=== PATIENT | male | born 1960 | race Caucasian/White ===

== ENCOUNTER 2021-10-05 13:47 | Inpatient (IN) ==
[2021-10-05 14:29] LABS: Basophils # (auto) 0.04 K/uL (0-0.2); Basophils % (auto) 0.4 %; Eosinophils # (auto) 0.12 K/uL (0-0.5); Eosinophils % (auto) 1.1 %; Hematocrit (blood only) 32.1 % (42-52); Immature Granulocytes # (auto) 0.02 K/uL (0.00-0.02); Immature Granulocytes % (auto) 0.2 %; Lymphocytes # (auto) 1.19 K/uL (1.2-3.4); Lymphocytes % (auto) 11.4 %; Mean Corpuscular Hemoglobin 27.9 pg (25-34); Mean Corpuscular Hgb Conc 31.2 g/dL (32-36); Mean Corpuscular Volume 89.7 fL (80-100); Monocytes # (auto) 1.02 K/uL (0.11-0.59); Monocytes % (auto) 9.7 %; Neutrophils # (auto) 8.08 K/uL (1.4-6.5); Neutrophils % (auto) 77.2 %; Platelet Count 613 K/uL (130-400); RDW Coefficient of Variation 15.5 % (11.5-14.5); RDW Standard Deviation 50.4 fL (36.4-46.3); Red Blood Count 3.58 M/uL (4.7-6.1); White Blood Count 10.47 K/uL (4.8-10.8)
[2021-10-05 14:45] LABS: INR 1.1 (0.9-1.1); Partial Thromboplastin Time 28.3 Seconds (21.0-31.0); Prothrombin Time 11.5 Seconds (9.0-12.0)
--- NOTE | 2021-10-05 14:46 | XRay Report ---
TWO VIEW CHEST CLINICAL HISTORY: Respiratory infection. FINDINGS: PA and lateral chest radiographs are compared to chest x-ray and chest CT dated 10/02/2021. The cardiomediastinal silhouette is unremarkable noting atherosclerotic calcification of the thoracic aorta. Emphysema and chronic interstitial thickening is similar to previous. The right lung is clear . A multiloculated gas and fluid containing pleural collection in the left lung has not significantly changed from previous. There is no pneumothorax. The bony thorax appears intact. IMPRESSION: A multiloculated fluid collection in the left mid to lower lung has not significantly ricardo nged from 10/02/2021. When correlated with the recent CT scan the appearance is most typical for empye ma. ACT 112: Negative or not required by law. Electronically signed by: Krunal Brock M.D. 10/05/2021 2:44 PM
[2021-10-05 14:49] LABS: Alanine Aminotransferase 53 U/L (7-52); Albumin Globulin Ratio 0.7 (0.9-2); Alkaline Phosphatase 152 U/L (34-104); Anion Gap 8 (3-11); Aspartate Aminotransferase 29 U/L (13-39); BUN Creatinine Ratio 17.9 (10-20); Bilirubin,Total 0.5 mg/dl (0.2-1.0); Blood Urea Nitrogen 12 mg/dl (6-23); Carbon Dioxide 29 mmol/L (21-32); Chloride 98 mmol/L (98-107); Est GFR (African American) 120.2 ml/min; Est GFR (Non-African American) 103.7 ml/min; Globulin 4.3 gm/dl (2.5-4.0); Glucose 146 mg/dl (70-99(Fasting)); Potassium 4.1 mmol/L (3.5-5.1); Sodium 135 mmol/L (136-145); Total Protein 7.3 gm/dl (6.0-8.3)
--- NOTE | 2021-10-05 16:14 | Electrocardiogram Report ---
Test Reason : Blood Pressure : / mmHG Vent. Rate : 093 BPM Atrial Rate : 093 BPM P-R Int : 138 ms QRS Dur : 086 ms QT Int : 336 ms P-R-T Axes : 048 044 050 degrees QTc Int : 417 ms Normal sinus rhythm Nonspecific ST abnormality When compared with ECG of 02-OCT-2021 10:52, No significant change was found Confirmed by Rc Mcnamara ([id number]) on 10/05/2021 4:14:25 PM Referred By: Confirmed By:Kali Mcnamara
--- NOTE | 2021-10-05 16:18 | Emergency Department Note ---
Impression & Plan Empyema lung, Cough, Anemia, Thrombocytosis ED Provider Note NAME: SANDI COHN AGE: 61 SEX: M : 1960 ARRIVES VIA: Walk-In INFORMANT: Patient, ED PROVIDER(S): Dontrell Jasmine MD Chief Complaint: HPI: Patient presents from home due to concern for reported lower red cell count. The patient also reports that he was seen here recently and was told that he should stay in hospital but went home. Patient states that [facility] who told him to return here. Patient denies any blood thinner use and denies any rectal bleeding or dark tarry stools. The patient states that he did have a cough that is been ongoing for several months but noticed some productive yellow sputum cough over the last 3 weeks. Patient has any fevers or chills. Patient denies shortness of breath or chest pain. Patient states that his appetite has been appropriate. Patient denies any nausea vomiting or diarrhea. Patient states he has a history of prediabetes and takes medication to help with his blood sugars. Per review of the patient's visit on October 02 he had been seen at that time and had a CAT scan which showed concern for large complex thick walled fluid and gas containing collection wit hin the left lower hemithorax measuring 14 x 7 cm and a likely empyema. The patient was advised to stay for IV antibiotics and potential drainage but he just wanted oral antibiotics at home. Patient did receive IV antibiotics and subsequently was discharged on Augmentin and Bactrim twice daily for 14 days. ROS: See HPI for pertinent positives and negatives. A total of 10 systems were reviewed and otherwise negative. Past medical history: See below Surgical history: See below Social history: See below Physical Exam: GENERAL: NAD, wearing glasses, wearing a mask, non-toxic. EYE EXAM: Normal conjunctiva. PERRL, no anisocoria and EOM's grossly intact w/o pain. Oropharynx: Moist mucous membranes, edentulous. NECK: Supple, no nuchal rigidity, no adenopathy, non-tender. No signs of mening ismus. FROM of the neck with good chin to chest and neck extension. No stridor. LUNGS: Decreased breath sounds left base normal chest wall mechanics. HEART: NSR, no MRG. ABDOMEN: Abdomen soft, non-tender, normo-active bowel sounds, no masses, no rebound or guarding. BACK: No CVA TTP. SKIN: No rashes and no bruising. UPPER EXTREMITIES: Upper extremities are grossly normal. LOWER EXTREMITIES: Grossly normal, no edema. NEURO EXAM: A&O x3, cranial nerves II-XII grossly intact, normal speech, moves all 4 extremities on command w/o issue. Good finger to nose, no drift, no sensory deficits. Differential diagnoses: Reactive airway disease, pneumonia, pneumothorax, COPD, CHF, infections, cardiac ischemia, pulmonary embolism, musculoskeletal, gastrointestinal, as well as other pathologies. Course: Patient was seen and evaluated the bedside. Full history physical exam was performed. EKG interpreted by me Imaging Studies: See Below Cardiac monitoring: An order was placed for continuous cardiac monitoring. The monitor shows a rate of 88 with sinus rhythm. MDM: Patient presented due to concern for recent empyema but left AMA back on the . Patient return for reevaluation. The patient did have blood work completed along with a chest x-ray. The patient does have a multiloculated fluid collection left mid to lower lung which is not significantly changed from prior. The patient is not hypoxic or in respiratory distress. Patient was ordered vancomycin and Zosyn to treat his empyema. The patient is white count of 10 with anemia at 10. The patient does have thrombocytosis of 613. Kidney function grossly unremarkable with mild elevation in blood glucose 146. Mild elevation in ALT and alk phos. Urinalysis does not show evidence of obvious infection. Covid negative. I did speak the on-call diabetes educator Dr. Berkowitz recommended repeat CAT scan of the chest to evaluate. This does show large complex thick-walled fluid and gas containing collection in left lower hem ithorax approximate 15 x 7 cm. He does recommend continued antibiotic treatment but is recommending VATS versus percutaneous drain. [facility] stated that [facility] currently do not have beds but they would recommend a pigtail or percutaneous catheter drain along with dornase and TPA treatments. He did state that 60 to 70% of people do not require surgery with this treatment. I did state that we would try and find an alternative placed where the patient could be accepted. This speak [facility] Dr. Bailon who accepted the patient. I did speak with the transfer center stated that they did not have any obvious bed holds. Patient was consented for transfer. I was then told that the patient may be a bed hold the patient cannot be transferred at this time. I spoke with the on-call hospitalist Dr. Avendano and the patient was admitted to the medicine service pending transfer to [facility]. Past Med/Surg History Medical History Dyslipidemia Left against medical advice Surgical History No pertinent past surgical history Social History Smoking Status: Never smoker Feels Safe at Home: Yes Allergies Allergies Allergy/AdvReac Type Severity Reaction Status Date / Time No Known Allergies Allergy Verified 10/05/21 17:55 Home Meds Home Medications Medication Instructions Recorded Confirmed etodolac 500 mg tablet 500 mg PO BID #0 10/18/13 10/05/21 lisinopril 10 1 tab PO QAM #0 10/18/13 10/05/21 mg-hydrochlorothiazide 12.5 mg tablet loratadine 10 mg capsule 10 mg PO QAM #0 10/18/13 10/05/21 pravastatin 40 mg tablet 40 mg PO HS #0 10/18/13 10/05/21 ranitidine HCl 150 mg tablet 150 mg PO DIRECTED #0 tab 11/16/16 10/05/21 tamsulosin 0.4 mg capsule 0.4 mg PO QAM #0 cap 11/16/16 10/05/21 tramadol 100 mg tablet 100 mg PO Q8 PRN #0 tab 11/16/16 10/05/21 methocarbamol 750 mg tablet 750 mg PO QID PRN #0 tab 12/22/17 10/05/21 multivitamin 1 tab PO QAM #0 12/22/17 10/05/21 omega 2-pjg-glk-fish oil 1,200 mg 1 cap PO QAM 10/02/21 10/05/21 (144 mg-216 mg) capsule (Fish Oil) Previous Rx's Medication Instructions Recorded amoxicillin 875 mg-potassium 1 tab PO BID 14 Days #28 tab 10/02/21 clavulanate 125 mg tablet sulfamethoxazole 800 1 tab PO BID 14 Days #28 tab 10/02/21 mg-trimethoprim 160 mg tablet (Bactrim DS) Results & Data (ED) Vital Signs Vital Signs - 24 hr 10/05/21 13:56 10/05/21 16:52 10/05/21 18:20 Temperature 36.6 C Temperature Source Temporal Artery Scan Pulse Rate 98 H Pulse Rate [Right Finger] 88 89 Pulse Rhythm Regular Pulse Rhythm [Right Finger] Regular Pulse Strength [Right Finger] Normal Respiratory Rate 20 16 20 Respiratory Effort / Characteristics Non-Labored Spontaneous Non-Labored Spontaneous Respiratory Depth Normal Normal Respiratory Pattern Regular Regular Blood Pressure 122/70 Blood Pressure [Right Arm] 121/73 118/67 Blood Pressure Mean 87 Blood Pressure Mean [Right Arm] 89 84 Blood Pressure Position [Right Arm] Sitting Pulse Oximetry 93 94 95 Oxygen Delivery Method Room Air Room Air Room Air Sepsis Recent Fever Within 48 Hours No Sepsis New/Unexplained Change in Mental Status No Sepsis Action Taken by Nursing No Action Required 10/05/21 20:00 Temperature Temperature Source Pulse Rate Pulse Rate [Right Finger] 71 Pulse Rhythm Pulse Rhythm [Right Finger] Regular Pulse Strength [Right Finger] Normal Respiratory Rate 17 Respiratory Effort / Characteristics Non-Labored Spontaneous Respiratory Depth Normal Respiratory Pattern Blood Pressure Blood Pressure [Right Arm] Blood Pressure Mean Blood Pressure Mean [Right Arm] Blood Pressure Position [Right Arm] Pulse Oximetry 96 Oxygen Delivery Method Room Air Sepsis Recent Fever Within 48 Hours Sepsis New/Unexplained Change in Mental Status Sepsis Action Taken by Alf Medications Current Medication List: was personally reviewed by me Laboratory Data Attestation: I reviewed the patient's lab results. Result diagrams: 10/05/21 14:07 10/05/21 14:07 Lab Results 10/05/21 10/05/21 10/05/21 Range/Units 14:07 14:07 14:07 WBC 10.47 (4.8-10.8) K/uL RBC 3.58 L (4.7-6.1) M/uL Hgb 10.0 L (14.0-18.0) g/dL Hct 32.1 L (42-52) % MCV 89.7 (80-100) fL MCH 27.9 (25-34) pg MCHC 31.2 L (32-36) g/dL RDW Std Deviation 50.4 H (36.4-46.3) fL RDW Coeff of Barrett 15.5 H (11.5-14.5) % Plt Count 613 H (130-400) K/uL MPV 9.0 (7.4-10.4) fL Immature Gran % (Auto) 0.2 % Neut % (Auto) 77.2 % Lymph % (Auto) 11.4 % Hitchcock % (Auto) 9.7 % Eos % (Auto) 1.1 % Baso % (Auto) 0.4 % Neut # (Auto) 8.08 H (1.4-6.5) K/uL Lymph # (Auto) 1.19 L (1.2-3.4) K/uL Hitchcock # (Auto) 1.02 H (0.11-0.59) K/uL Eos # (Auto) 0.12 (0-0.5) K/uL Baso # (Auto) 0.04 (0-0.2) K/uL Immature Gran # (Auto) 0.02 (0.00-0.02) K/uL PT 11.5 (9.0-12.0) Seconds INR 1.1 (0.9-1.1) APTT 28.3 (21.0-31.0) Seconds PTT Ratio 1.0 Sodium 135 L (136-145) mmol/L Potassium 4.1 (3.5-5.1) mmol/L Chloride 98 (98-107) mmol/L Carbon Dioxide 29 (21-32) mmol/L Anion Gap 8 (3-11) BUN 12 (6-23) mg/dl Creatinine 0.67 (0.6-1.4) mg/dl Est Cr Clr Drug Dosing Not Reportable Est GFR ( Amer) 120.2 ml/min Est GFR (Non-Af Amer) 103.7 ml/min BUN/Creatinine Ratio 17.9 (10-20) Glucose 146 H (70-99(Fasting)) mg/dl Calcium 9.0 (8.5-10.1) mg/dl Total Bilirubin 0.5 (0.2-1.0) mg/dl AST 29 (13-39) U/L ALT 53 H (7-52) U/L Alkaline Phosphatase 152 H (34-104) U/L Total Protein 7.3 (6.0-8.3) gm/dl Albumin 3.0 L (3.4-5.0) gm/dl Globulin 4.3 H (2.5-4.0) gm/dl Albumin/Globulin Ratio 0.7 L (0.9-2) Urine Color Urine Appearance (Clear) Urine pH (4.5-7.5) Ur Specific Cunningham (1.000-1.030) Urine Protein (Negative) Urine Glucose (UA) (Negative) Urine Ketones (Negative) Urine Blood (Negative) Urine Nitrite (Negative) Urine Bilirubin (Negative) Urine Urobilinogen (Negative) Ur Leukocyte Esterase (Negative) SARS-CoV-2, RNA, NAAT (NEGATIVE) 10/05/21 10/05/21 Range/Units 16:54 Unknown WBC (4.8-10.8) K/uL RBC (4.7-6.1) M/uL Hgb (14.0-18.0) g/dL Hct (42-52) % MCV (80-100) fL MCH (25-34) pg MCHC (32-36) g/dL RDW Std Deviation (36.4-46.3) fL RDW Coeff of Barrett (11.5-14.5) % Plt Count (130-400) K/uL MPV (7.4-10.4) fL Immature Gran % (Auto) % Neut % (Auto) % Lymph % (Auto) % Hitchcock % (Auto) % Eos % (Auto) % Baso % (Auto) % Neut # (Auto) (1.4-6.5) K/uL Lymph # (Auto) (1.2-3.4) K/uL Hitchcock # (Auto) (0.11-0.59) K/uL Eos # (Auto) (0-0.5) K/uL Baso # (Auto) (0-0.2) K/uL Immature Gran # (Auto) (0.00-0.02) K/uL PT (9.0-12.0) Seconds INR (0.9-1.1) APTT (21.0-31.0) Seconds PTT Ratio Sodium (136-145) mmol/L Potassium (3.5-5.1) mmol/L Chloride (98-107) mmol/L Carbon Dioxide (21-32) mmol/L Anion Gap (3-11) BUN (6-23) mg/dl Creatinine (0.6-1.4) mg/dl Est Cr Clr Drug Dosing Est GFR ( Amer) ml/min Est GFR (Non-Af Amer) ml/min BUN/Creatinine Ratio (10-20) Glucose (70-99(Fasting)) mg/dl Calcium (8.5-10.1) mg/dl Total Bilirubin (0.2-1.0) mg/dl AST (13-39) U/L ALT (7-52) U/L Alkaline Phosphatase (34-104) U/L Total Protein (6.0-8.3) gm/dl Albumin (3.4-5.0) gm/dl Globulin (2.5-4.0) gm/dl Albumin/Globulin Ratio (0.9-2) Urine Color Yellow Urine Appearance Clear (Clear) Urine pH 6.5 (4.5-7.5) Ur Specific Cunningham 1.029 (1.000-1.030) Urine Protein Negative (Negative) Urine Glucose (UA) Negative (Negative) Urine Ketones Negative (Negative) Urine Blood Negative (Negative) Urine Nitrite Negative (Negative) Urine Bilirubin Negative (Negative) Urine Urobilinogen Negative (Negative) Ur Leukocyte Esterase Negative (Negative) SARS-CoV-2, RNA, NAAT NEGATIVE (NEGATIVE) Administered Medications Discontinued Medications Piperacillin Sod/Tazobactam Sod (Zosyn) 4.5 gm in 120 mls @ 240 mls/hr IV NOW ONE Stop: 10/05/21 16:59 Last Infusion: 10/05/21 17:50 Dose: 0 mls/hr Documented by: [id number] Admin: 10/05/21 16:53 Dose: 240 mls/hr Documented by: [id number] Vancomycin HCl 2,500 mg/ (Sodium Chloride) 550 mls @ 180 mls/hr IV NOW ONE Stop: 10/05/21 19:33 Last Admin: 10/05/21 18:24 Dose: 180 mls/hr Documented by: [id number] Ioversol (Optiray 320 100ml) 95 ml IV ONCE ONE Stop: 10/05/21 17:14 Last Admin: 10/05/21 17:13 Dose: 95 ml Documented by: [id number] Imaging Data Radiologist's Impression: Chest X-Ray 10/05/21 13:59 TWO VIEW CHEST CLINICAL HISTORY: Respiratory infection. FINDINGS: PA and lateral chest radiographs are compared to chest x-ray and chest CT dated 10/02/2021. The cardiomediastinal silhouette is unremarkable noting atherosclerotic calcification of the thoracic aorta. Emphysema and chronic interstitial thickening is similar to previous. The right lung is clear. A multiloculated gas and fluid containing pleural collection in the left lung has not significantly changed from previous. There is no pneumothorax. The bony thorax appears intact. IMPRESSION: A multiloculated fluid collection in the left mid to lower lung has not significantly changed from 10/02/2021. When correlated with the recent CT scan the appearance is most typical for empyema. ACT 112: Negative or not required by law. Electronically signed by: Krunal Brock M.D. 10/05/2021 2:[address] 10/05/21 16:[address] WITH CONTRAST CT DOSE: 714.79 mGycm HISTORY: Left-sided chest pain. Follow-up left empyema versus lung abscess. Leg TECHNIQUE: Multiaxial CT images of the chest were performed following the intravenous administration of contrast. A dose lowering technique was utilized adhering to the principles of ALARA. COMPARISON: Chest CTA 10/02/2020. FINDINGS: There is no pericardial effusion. No pneumothorax is present. No enlarged thoracic lymph nodes are noted. Note is made of a large complex thick- walled gas and fluid containing collection within the left lower hemithorax which measures 15 x 7 cm. This accounts for the finding on chest radiograph performed earlier today. Contents within this collection measure above water attenuation. Adjacent subpleural airspace opacity within the lingula and left lower lobe is noted with volume loss. Secretions within the left lower lobe bronchi are present. There is mild emphysema. Right lung is clear. No pneumothorax. No suspicious lesions are identified within the bony thorax. Visualized portions of the upper abdomen demonstrate probable hepatic steatosis. Bilateral gynecomastia is incidentally noted. IMPRESSION: 1. No significant change compared to the prior study. 2. Large complex thick-walled fluid and gas containing collection within the left lower hemithorax which measures 15 x 7 cm. An empyema is favored. A pulmonary abscess is within the differential although considered less likely. Adjacent subpleural left lower lobe and lingular airspace opacity with volume loss. An underlying neoplastic process is considered much less likely however a follow-up chest CT in 3-6 months to ensure resolution is recommended. ACT 112: Negative or not required by law. Electronically signed by: Dayne Vargas M.D. 10/05/2021 5:42 PM Discharge Plan Visit Data Chief Complaint: Abnormal Labs/Diagnostic Testing Stated Complaint: FLUID BY LUNG, ABNORMAL LABS, LIGHTHEADED ED Provider: Dontrell Jasmine Discharge Problem: Empyema lung, Cough, Anemia, Thrombocytosis Patient Disposition: Admitted As Inpatient Prescriptions Prescriptions: No Action pravastatin 40 mg Tablet 40 mg PO HS Qty: 0 RF: 0 lisinopril-hydrochlorothiazide 10-12.5 mg Tablet 1 tab PO QAM Qty: 0 RF: 0 etodolac 500 mg Tablet 500 mg PO BID Qty: 0 RF: 0 loratadine 10 mg Capsule 10 mg PO QAM Qty: 0 RF: 0 tamsulosin 0.4 mg Capsule 0.4 mg PO QAM Qty: 0 RF: 0 ranitidine HCl 150 mg Tablet 150 mg PO DIRECTED Qty: 0 RF: 0 tramadol 100 mg Tablet 100 mg PO Q8 PRN (Reason: Pain) Qty: 0 RF: 0 multivitamin Tablet 1 tab PO QAM Qty: 0 RF: 0 methocarbamol 750 mg Tablet 750 mg PO QID PRN (Reason: Pain) Qty: 0 RF: 0 omega 4-cdw-lsh-fish oil [Fish Oil] 1,200 (144-216) mg Capsule 1 cap PO QAM RF: 0 sulfamethoxazole-trimethoprim [Bactrim DS] 800-160 mg tablet 1 tab PO BID 14 Days Qty: 28 RF: 0 amoxicillin-pot clavulanate 875-125 mg tablet 1 tab PO BID 14 Days Qty: 28 RF: 0 Referrals Referrals: Leigh Moser PA-C [Primary Care Provider] -
[2021-10-05] MEDS ORDERED: PIPERACILLIN/TAZOBACTAM 4.5 GM/120 ML BAG IV ONE (16:30)
[2021-10-05] MEDS ORDERED: PATIENT'S HEIGHT AND/OR WEIGHT NEEDED SCH (16:30)
[2021-10-05] MEDS ORDERED: VANCOMYCIN HCL 2,500 MG in SODIUM CHLORIDE 0.9% 500 ML IV ONE (16:30)
[2021-10-05] MEDS ORDERED: OPTIRAY 320 100ml IV ONE (17:13)
--- NOTE | 2021-10-05 17:44 | CT Scan Report ---
CHEST CT WITH CONTRAST CT DOSE: 714.79 mGycm HISTORY: Left-sided chest pain. Follow-up left empyema versus lung abscess. Leg TECHNIQUE: Multiaxial CT images of the chest were performed following the intravenous administration of contrast. A dose lowering technique was utilized adhering to the principles of ALARA. COMPARISON: Chest CTA 10/02/2020. FINDINGS: There is no pericardial effusion. No pneumothorax is present. No enlarged thoracic lymph no sadi are noted. Note is made of a large complex thick-walled gas and fluid containing collection withi n the left lower hemithorax which measures 15 x 7 cm. This accounts for the finding on chest radiogra ph performed earlier today. Contents within this collection measure above water attenuation. Adjacent subpleural airspace opacity within the lingula and left lower lobe is noted with volume loss. Secret ions within the left lower lobe bronchi are present. There is mild emphysema. Right lung is clear. No pneumothorax. No suspicious lesions are identified within the bony thorax. Visualized portions of th e upper abdomen demonstrate probable hepatic steatosis. Bilateral gynecomastia is incidentally noted. IMPRESSION: 1. No significant change compared to the prior study. 2. Large complex thick-walled fluid and gas containing collection within the left lower hemithorax wh ich measures 15 x 7 cm. An empyema is favored. A pulmonary abscess is within the differential althoug h considered less likely. Adjacent subpleural left lower lobe and lingular airspace opacity with volu me loss. An underlying neoplastic process is considered much less likely however a follow-up chest CT in 3-6 months to ensure resolution is recommended. ACT 112: Negative or not required by law. Electronically signed by: Dayne Vargas M.D. 10/05/2021 5:42 PM
[2021-10-05 21:41] LABS: Appearance Urine Clear (Clear); Bilirubin Urine Negative (Negative); Blood Urine Negative (Negative); Color Urine Yellow; Glucose Urine UA Negative (Negative); Ketones Urine Negative (Negative); Leukocyte Esterase Urine Negative (Negative); Nitrite Urine Negative (Negative); Protein Urine Negative (Negative); Specific Gravity Urine 1.029 (1.000-1.030); Urobilinogen Urine Negative (Negative); pH Urine 6.5 (4.5-7.5)
--- NOTE | 2021-10-05 23:10 | History and Physical Report ---
DATE OF ADMISSION: 10/05/2021. CHIEF COMPLAINT: Lung abscess versus empyema. HISTORY OF PRESENT ILLNESS: A 61-year-old male with past medical history significant for hypertension, BPH, hyperlipidemia, prediabetes, presents with cough going on for 2 months. The patient was in the ER on 10/02 with a similar complaint. At that time, imaging studies showed possible lung abscess versus empyema and advised for IV antibiotics and staying in the hospital for possible drainage, but the patient adamantly refused and signed out AMA and was given oral antibiotics, Augmentin and Bactrim, but the patient says today, he felt almost passed out, so he came back and again the CT chest showing large complex thick walled fluid and gas containing collection in the left lower hemithorax, which measures 15 x 7 cm, empyema is favored, pulmonary abscess in the differential. ER physician talked to pulmonary and he was given vancomycin and Zosyn and getting transferred to [facility]. Hospitalist, Dr. Bailon, accepted the patient but we are awaiting for a bed, so we were called for admission until a bed is available. The patient is currently resting comfortably, hemodynamically stable. Says his shortness of breath is okay now, saturating fine on room air, ambulation makes him short of breath. Denies any headache, no dizziness, no blurred visions, no earache, no runny nose, no sore throat, no nausea, no vomiting. Appetite is good. No difficulty swallowing. No chest pain, no nausea, no abdominal pain. Normal bowel and bladder movements. He has some slight edema in the legs, some difficulty with urination because of enlarged prostate and takes medication for it. Lives with his family. ALLERGIES: No known drug allergies. PAST MEDICAL HISTORY: As mentioned above. PAST SURGICAL HISTORY: Had a knee arthroscopy. MEDICATIONS: The patient is currently on Augmentin 875 mg 1 tablet p.o. b.i.d., Bactrim DS 1 tablet p.o. b.i.d., etodolac 500 mg p.o. b.i.d., lisinopril/hydrochlorothiazide 1 tablet p.o. daily, loratadine 10 mg p.o. daily, methocarbamol 750 mg p.o. q.i.d. p.r.n., multivitamin 1 tablet p.o. daily, fish oil 1 gram p.o. daily, pravastatin 40 mg p.o. at bedtime, Flomax 0.4 mg p.o. a.m., tramadol 100 mg p.o. q.8 hours p.r.n. FAMILY HISTORY: Significant for mother had diabetes; father had fluid around the heart. SOCIAL HISTORY: . Former smoker, smoked 1 pack a day for 20 years, quit about 7 years ago. Alcohol occasional as per the patient. No drug use. REVIEW OF SYSTEMS: As per HPI. Rest of the review of systems is negative. PHYSICAL EXAMINATION: GENERAL: The patient is obese, not in acute distress. VITAL SIGNS: Temperature 36.6, pulse 71, respirations 17, blood pressure 118/67, oxygen 96% on room air. HEENT: Pupils equal, round and reactive to light. Oral mucosa moist. NECK: No JVD. No neck masses. CARDIOVASCULAR: S1 and S2 heard. Regular rate and rhythm. No murmur, no gallop. RESPIRATORY SYSTEM: Normal AP diameter. No accessory muscle use. No wheezing, no crackles. ABDOMEN: Soft, bowel sounds present, nontender, no distention. CENTRAL NERVOUS SYSTEM: Cranial nerves II through XII are grossly intact, nonfocal. EXTREMITIES: Mild pedal edema, no erythema seen. LABORATORY DATA: WBC 10.4, hemoglobin 10, hematocrit 32.1, platelets 613. PT 11.5, INR 1.1, APTT 28.3. Sodium 135, potassium 4.1, chloride 98, bicarbonate 29, BUN 12, creatinine 0.6, serum glucose 146, calcium 9, total bilirubin 0.5, AST 29, ALT 53, alkaline phosphatase 152. SARS-CoV-2 RNA rapid test negative. IMAGING DATA: CT of the chest with contrast: Large complex thick walled fluid and gas containing collection in the left lower hemithorax, which measures 15 x 7 cm and empyema is favored. A pulmonary abscess is within the differential, though considered less likely. Adjacent subpleural left lower lobe and lingular airspace opacity with volume loss and underlying neoplastic process considered much less likely; however, a followup CT chest in 3-6 months is recommended. Chest x-ray: A multiloculated fluid collection in the left mid to lower lung. EKG: Normal sinus rhythm at a rate of 93, nonspecific ST-T changes seen. ASSESSMENT AND PLAN: This is a 61-year-old male who presents with ongoing cough for the last 2 months and found to have left lower lung empyema versus abscess. 1. Left lower lung empyema versus abscess: Emergency Room talked to pulmonary instrumentation supervisor, plan to transfer to [facility], awaiting a bed. Until then, we will admit to the hospital. Received vancomycin and Zosyn, which will be continued. Gentle fluids. We will keep him n.p.o. from midnight in case of any procedures. Closely monitor in the med-telemetry for now. His hemodynamics are stable. Saturating okay on room air. Nebulizers p.r.n.Needs follow up ct chest. 2. History of hyperlipidemia: Continue statin. 3. Benign prostatic hypertrophy: Continue Flomax. 4. History of hypertension: Continue lisinopril/hydrochlorothiazide. 5. History of prediabetes: We will follow the HbA1c level. Diabetic diet when able. DISPOSITION: Closely monitor in the med tele. Awaiting transfer to [facility]. Level 1, full code. Job ID: [id number] [facility]
[2021-10-05] MEDS ORDERED: POLYETHYLENE (MIRALAX) 17 GM PACK PO PRN (23:42)
[2021-10-05] MEDS ORDERED: SODIUM CHLORIDE 0.9% 1000ML 1,000 ML IV SCH (23:42)
[2021-10-05] MEDS ORDERED: LEVALBUTEROL HCL 1.25 MG/3 ML NEB NEB PRN (23:42)
[2021-10-05] MEDS ORDERED: VANCOMYCIN CONSULT ACTIVE PRN (23:42)
[2021-10-05] MEDS ORDERED: VANCOMYCIN HCL 1,000 MG in SODIUM CHLORIDE 0.9% 250 ML IV SCH (23:42)
[2021-10-05] MEDS ORDERED: METHOCARBAMOL 750 MG TABLET PO PRN (23:42)
[2021-10-05] MEDS ORDERED: NITROGLYCERIN SL 0.4 MG/TAB TAB SL PRN (23:42)
[2021-10-05] MEDS ORDERED: PIPERACILL/TAZOBAC CONSULT ACTIVE PRN (23:42)
[2021-10-06] MEDS: ACETAMINOPHEN 325 MG TAB PO PRN ×3 (00:12→17:53)
[2021-10-06] MEDS ORDERED: PIPERACILLIN/TAZOBACTAM 4.5 GM in DEXTROSE 5% 100 ML IV ONE (00:30)
[2021-10-06] MEDS: VANCOMYCIN HCL 1,250 MG in SODIUM CHLORIDE 0.9% 250 ML IV SCH ×2 (04:00→16:24)
[2021-10-06 05:30] LABS: Basophils # (auto) 0.03 K/uL (0-0.2); Basophils % (auto) 0.3 %; Eosinophils # (auto) 0.21 K/uL (0-0.5); Eosinophils % (auto) 1.9 %; Hemoglobin 8.7 g/dL (14.0-18.0); Immature Granulocytes # (auto) 0.03 K/uL (0.00-0.02); Immature Granulocytes % (auto) 0.3 %; Lymphocytes # (auto) 1.53 K/uL (1.2-3.4); Lymphocytes % (auto) 13.7 %; Mean Corpuscular Hgb Conc 31.1 g/dL (32-36); Monocytes # (auto) 1.24 K/uL (0.11-0.59); Monocytes % (auto) 11.1 %; Neutrophils # (auto) 8.15 K/uL (1.4-6.5); Neutrophils % (auto) 72.7 %; Platelet Count 586 K/uL (130-400); RDW Coefficient of Variation 15.8 % (11.5-14.5); RDW Standard Deviation 51.6 fL (36.4-46.3); Red Blood Count 3.11 M/uL (4.7-6.1); White Blood Count 11.19 K/uL (4.8-10.8)
[2021-10-06] MEDS: PIPERACILLIN/TAZOBACTAM 4.5 GM in DEXTROSE 5% 100 ML IV SCH ×3 (05:37→21:50)
[2021-10-06 05:56] LABS: BUN Creatinine Ratio 14.9 (10-20); Calcium 8.9 mg/dl (8.5-10.1); Est GFR (African American) 120.2 ml/min; Est GFR (Non-African American) 103.7 ml/min; Magnesium 1.6 mg/dl (1.7-2.4); Potassium 4.4 mmol/L (3.5-5.1)
[2021-10-06 07:12] LABS: Estimated Average Glucose 148 mg/dl; Hemoglobin A1C 6.8 % (4.5-5.6)
--- NOTE | 2021-10-06 08:01 | Pulmonary Consultation ---
Date of Consultation October 06, 2021 Assessment & Plan (1) Abnormal chest CT: (2) Multifocal pneumonia: (3) Lung abscess: (4) Empyema lung: CT chest 03/07/2022 personally reviewed: Centrilobular emphysema appreciated bilaterally Left lower lobe multiloculated, thick-walled lesion 15 x 7.3 cm appreciated with air pockets within No significant mediastinal lymphadenopathy --Pneumonia with possible pulmonary abscess Patient does not have any pleuritic chest pain Symptoms have been going on for months Has not been adequately treated with antibiotic as an outpatient To me the possibility of it being pulmonary abscess is a bit on the higher side especially given the patient does not have any pleuritic chest pain which is pathopneumonic for empyema VATS should be considered in patient's case. COVID-19 PCR negative Nasal MRSA negative --COPD Not on any new meds at home We will start the patient on Incruse to be used on a daily basis Plan: Continue with antibiotics Follow sputum Patient has been accepted at [place] by CT surgery. If there is very significant delay in patient's transfer we will give a trial of pigtail catheter placement Although the patient's nasal MRSA is negative, I would like to continue with vancomycin for at least 48 hours. Case discussed with Dr. Santizo Please note the above document was generated using voice recognition software. It may contain grammatical, syntax or spelling errors.Any formal questions or concerns about the content, text or information contained within the body of this dictation should be directly addressed to the provider for clarification. History of Present Illness Attending Physician: Armen Santizo MD History of Present Illness 61-year-old male coming to hospital because of worsening cough Patient was in the ED on the of this month and was advised to be admitted but he wanted to go home on antibiotics He did not find any improvement that is the reason he came back to the hospital Dr. Jasmine give me a call from the ED. I discussed the case with him twice last night. At the time of examination patient was saturating 92-93% on room air He was actively coughing. State that he has been having issues with coughing going up for approximately 6- 8 weeks Has not taken any antibiotics for it. The only antibiotic he was given was on 02 October which he took for 1 day and then came to the hospital Interestingly he denies any pleuritic chest pain or pleurisy. Subjective fevers. No chills. Denies any dysuria or diarrhea. No headache. Denies any hemoptysis. No blurry vision. Denies any personal history of TB. Denies any known exposure to tuberculosis. Social history: 53-lzom-roko smoking history, quit at the age of 56 Allergies Allergy/AdvReac Type Severity Reaction Status Date / Time No Known Allergies Allergy Verified 10/05/21 17:55 Home Medications Medication Instructions Recorded Confirmed Type etodolac 500 mg tablet 500 mg PO BID #0 10/18/13 10/05/21 History lisinopril 10 1 tab PO QAM #0 10/18/13 10/05/21 History mg-hydrochlorothiazide 12.5 mg tablet loratadine 10 mg capsule 10 mg PO QAM #0 10/18/13 10/05/21 History pravastatin 40 mg tablet 40 mg PO HS #0 10/18/13 10/05/21 History ranitidine HCl 150 mg tablet 150 mg PO DIRECTED #0 tab 11/16/16 10/05/21 History tamsulosin 0.4 mg capsule 0.4 mg PO QAM #0 cap 11/16/16 10/05/21 History tramadol 100 mg tablet 100 mg PO Q8 PRN #0 tab 11/16/16 10/05/21 History methocarbamol 750 mg tablet 750 mg PO QID PRN #0 tab 12/22/17 10/05/21 History multivitamin 1 tab PO QAM #0 12/22/17 10/05/21 History amoxicillin 875 mg-potassium 1 tab PO BID 14 Days #28 tab 10/02/21 10/05/21 Rx clavulanate 125 mg tablet omega 1-ecm-amk-fish oil 1,200 mg 1 cap PO QAM 10/02/21 10/05/21 History (144 mg-216 mg) capsule (Fish Oil) sulfamethoxazole 800 1 tab PO BID 14 Days #28 tab 10/02/21 10/05/21 Rx mg-trimethoprim 160 mg tablet (Bactrim DS) Patient History Medical History Dyslipidemia Left against medical advice Surgical History No pertinent past surgical history Social History Smoking Status: Former smoker Second Hand Exposure: No; Do You Dip or Chew Tobacco: No; Tobacco Cessation Education Requested by Patient: No Hx Alcohol Use: Yes Alcohol type: beer Hx Substance Use: No Preferred Language: Serbian Communication Ability: Effective 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 Beliefs That Will Affect Care: None Current Living Situation: Spouse Other Information That Helps Us Care for You: No Feels Safe at Home: Yes Safety Concerns: Feels Safe At This Time Assistive Devices: None Review of Systems Review of Systems: All systems reviewed & are unremarkable except as noted in HPI & below Physical Exam Physical Exam: Constitutional: No acute distress HEENT: EOMI, PERRLA Respiratory system: Decreased air entry bilaterally, no wheeze, no rhonchi, positive crackles appreciated bilaterally more on the left lower side CVS: S1-S2 positive, no murmurs or gallops Abdomen: Soft, nontender, nondistended, positive bowel sounds x4, obese Extremities: +2 pulses bilaterally radialis/ dorsalis pedis, no cyanosis, +1 edema bilateral lower extremity Neuro: Awake alert oriented x3 Psych: Normal mood and affect G/U: No Frausto Skin: no rashes, warm and dry Lymphatic: no cervical or axillary lymphadenopathy Results & Data Results & Data ([facility]) Vital Signs (Past 12 Hours) Vital Signs Temp Pulse Pulse Resp BP Pulse Ox 10/06/21 04:06 36.8 C 80 18 140/82 93 10/06/21 00:00 86 17 133/76 97 10/05/21 23:50 37.1 C 84 17 133/76 97 10/05/21 23:44 84 17 97 10/05/21 22:00 87 17 95 Laboratory Results 10/06/21 05:01 10/06/21 05:01 PG Care Time/CCT Total # of Minutes Spent Total Time Spent with Patient: Total time spent is greater than 50% in coordination of care (as documented) at patient's floor/unit and/or counseling patient: [place] [address] Inpt Consult Level 5 Patient Type New Diagnoses Abnormal chest CT R93.89 Multifocal pneumonia J18.9 Lung abscess J85.2 Empyema lung J86.9
[2021-10-06] MEDS: TAMSULOSIN HCL 0.4 MG CAP PO SCH (08:11)
[2021-10-06] MEDS: MULTIVITAMIN TAB PO SCH (08:13)
[2021-10-06] MEDS: LORATADINE 10 MG TAB PO SCH (08:13)
[2021-10-06] MEDS: LISINOPRIL/HCTZ 10/12.5MG TAB PO SCH (09:27)
--- NOTE | 2021-10-06 10:07 | Pharmacy Report ---
Pharmacy Vanc AUC Short Note - Date of Service October 06, 2021 - Assessment & Plan Assessment 61 year old M receiving vancomycin and zosyn for treatment of empyema vs. pulmonary abscess. MRSA nasal (-), no cultures. Renal function stable. Awaiting transport to [facility] per documentation. Day #2 of antimicrobial therapy. Plan Vancomycin * AUC/MARCIA is the preferred PK/PD target for vancomycin * AUC guided dosing is effective and associated with decreased risk of nephroto xicity compared to traditional trough targets * Trough level of 14.8mcg/mL is predicted to achieve target AUC/MARCIA of 400-600 mg/L.hr and may be associated with a 10% risk of nephrotoxicity * S/p vanc 2500mg IV loading dose. Continue dose of 1250 mg IV every 12 hours * Trough level ordered for 324 AM Zosyn 4.5gm IV q8h extended infusion for CrCL >20 & BMI >35 Pharmacy will continue to follow and will adjust dose/frequency as necessary. Thank you.
[2021-10-06] MEDS ORDERED: MAGNESIUM SULFATE / D5W 1 GM/100 ML BAG IV ONE (11:00)
[2021-10-06] MEDS ORDERED: DEXTROSE 50% 50 ML SYRINGE IV PRN (11:49)
[2021-10-06] MEDS ORDERED: CARBOHYDRATES FOR HYPOGLYCEMIA PO PRN (11:49)
[2021-10-06] MEDS ORDERED: GLUCOSE 40% GEL 15 GM TUBE PO PRN (11:49)
[2021-10-06] MEDS ORDERED: GLUCOSE 10 TABS/TUBE PO PRN (11:49)
[2021-10-06] MEDS ORDERED: GLUCAGON FOR INJ 1 MG VIAL SQ PRN (11:49)
[2021-10-06] MEDS: traMADol HCL 50 MG TABLET PO PRN ×2 (13:18→22:06)
[2021-10-06] MEDS: GABAPENTIN 100 MG CAP PO SCH ×2 (13:25→22:31)
[2021-10-06] MEDS: UMECLIDINIUM BROMIDE 62.5MCG/BLISTER 7 PUFFS/INHALER INH SCH (13:26)
[2021-10-06] MEDS: INSULIN ASPART PER UNIT SC SCH ×2 (17:57→22:08)
--- NOTE | 2021-10-06 19:44 | Hospitalist Progress Note ---
Date of Service October 06, 2021 Assessment & Plan (1) Lung abscess: (2) Multifocal pneumonia: Plan: Patient is a 61 yr male presents with ongoing cough for the last 2 months and found to have left lower lung empyema versus abscess. Pneumonia with pulmonary abscess COPD --CT Chest:No significant change compared to the prior study. Large complex thick-walled fluid and gas containing collection within the left lower hemithorax which measures 15 x 7 cm. An empyema is favored. A pulmonary abscess is within the differential although considered less likely. Adjacent subpleural left lower lobe and lingular airspace opacity with volume loss. An underlying neoplastic process is considered much less likely however a follow-up chest CT in 3-6 months to ensure resolution is recommended. --Continue empiric antibiotic Sputum culture pending Covid screen negative MRSA screen negative Appreciate pulmonology input If patient's transfer gets delayed, pulmonology plans to place pigtail catheter Saturating low 90s on room air Nebs PRN Continue vancomycin, Zosyn for now Plan for transfer to [facility] for CT surgery evaluation--when bed avaialbale Hypomagnesemia Replace electrolytes as needed DM II HbA1C: 6.8 Hold Metformin Continue insulin therapy while hospitalized Monitor BGs Hyperlipidemia: Continue statin. BPH Continue Flomax. Hypertension: Continue lisinopril/hydrochlorothiazide. DVT Px SCDs for now Code Status Full Code Disposition Awaiting transfer to [facility]. Admission and Anticipated Discharge Date Admission Date: October 05, 2021 Subjective And is seen and examined at bedside States having cough with yellowish expectoration Denies any chest pain, dyspnea, dizziness, nausea, abdominal pain Discussed with pulmonology today Waiting for transfer to [facility] Review of Systems Review of Systems: All systems reviewed & are unremarkable except as noted in Subjective Physical Exam Physical Exam: Physical Exam: Vitals signs as noted above General Appearance:Obese, no apparent distress Head: normocephalic, Atraumatic Eyes: normal inspection, EOMI Neck: supple, Trachea midline Respiratory/Chest: Decreased breath sounds, Left basal crackles, No accessory muscle use Cardiovascular: S1, S2, No murmur Abdomen/GI:Soft, Non tender, Bowel sounds present Extremities/Musculoskeletal:normal inspection, Trace pedal edema Neurologic/Psych:AAOX3, grossly no focal neurological deficits Skin: normal color, warm Results & Data Results & Data ([facility]) Vital Signs (Past 12 Hours) Vital Signs Temp Pulse Resp BP Pulse Ox 10/06/21 16:30 81 18 133/67 91 10/06/21 12:48 36.9 C 75 22 133/78 90 Laboratory Results Short CBC 10/06/21 Range/Units 05:01 WBC 11.19 H (4.8-10.8) K/uL Hgb 8.7 L (14.0-18.0) g/dL Hct 28.0 L (42-52) % Plt Count 586 H (130-400) K/uL BMP 10/06/21 05:01 Sodium 134 L Potassium 4.4 Chloride 98 Carbon Dioxide 29 BUN 10 Creatinine 0.67 Glucose 107 H Calcium 8.9 Urine 10/05/21 Range/Units Unknown Urine Color Yellow Urine Appearance Clear (Clear) Urine pH 6.5 (4.5-7.5) Ur Specific [place] 1.029 (1.000-1.030) Urine Protein Negative (Negative) Urine Glucose (UA) Negative (Negative)
[2021-10-06] MEDS ORDERED: PRAVASTATIN SOD 40 MG TAB PO SCH (21:00)
[2021-10-07] MEDS ORDERED: VANCOMYCIN TROUGH ONE (03:30)
[2021-10-07 03:46] LABS: Hematocrit (blood only) 29.1 % (42-52); Hemoglobin 9.1 g/dL (14.0-18.0); Mean Corpuscular Hemoglobin 28.3 pg (25-34); Mean Corpuscular Hgb Conc 31.3 g/dL (32-36); Mean Corpuscular Volume 90.4 fL (80-100); Mean Platelet Volume 8.8 fL (7.4-10.4); Platelet Count 626 K/uL (130-400); RDW Coefficient of Variation 15.8 % (11.5-14.5); RDW Standard Deviation 52.3 fL (36.4-46.3); Red Blood Count 3.22 M/uL (4.7-6.1); White Blood Count 10.22 K/uL (4.8-10.8)
[2021-10-07 04:06] LABS: BUN Creatinine Ratio 14.1 (10-20); Creatinine Clr Calc Pharmacy 160.3 ml/min; Est GFR (African American) 122.5 ml/min; Est GFR (Non-African American) 105.7 ml/min; Magnesium 1.8 mg/dl (1.7-2.4); Potassium 4.4 mmol/L (3.5-5.1)
[2021-10-07] MEDS: ACETAMINOPHEN 325 MG TAB PO PRN (04:23)
[2021-10-07] MEDS: VANCOMYCIN HCL 1,250 MG in SODIUM CHLORIDE 0.9% 250 ML IV SCH (04:49)
[2021-10-07] MEDS: PIPERACILLIN/TAZOBACTAM 4.5 GM in DEXTROSE 5% 100 ML IV SCH ×2 (06:13→13:44)
--- NOTE | 2021-10-07 08:31 | Pharmacy Report ---
Pharmacy Vanc AUC Short Note - Date of Service October 07, 2021 - Assessment & Plan Assessment 61 year old M receiving IV vancomycin for treatment of pneumonia with lung abscess. Pertinent microbiologic data includes: Negative MRSA Nasal Swab. Day # 3 of antimicrobial therapy. Plan Vancomycin * Trough level on 10/07 is 8.1, which results to an AUC less than 400 (~349) mg/L.hr * Dose would be increased to 1250 mg q8h to achieve goal AUC/MARCIA in the 400-600 mg/L.hr range * The dose increase is predicted to achieve target AUC/MARCIA of 522 mg/L.hr and associated trough of 16.1 mg/L * Trough level ordered prior to the 4th dose at about steady state on Zosyn * Zosyn 4.5 g q8h for CrCl > 20mL/min and BMI 35 or above * will continue zosyn at the current dose and regimen due to indication of pneumonia with lung abscess Pharmacy will continue to follow and will adjust dose/frequency as necessary. Thank you.
[2021-10-07] MEDS: GABAPENTIN 100 MG CAP PO SCH ×2 (09:00→13:44)
[2021-10-07] MEDS: LISINOPRIL/HCTZ 10/12.5MG TAB PO SCH (09:01)
[2021-10-07] MEDS: MULTIVITAMIN TAB PO SCH (09:01)
[2021-10-07] MEDS: LORATADINE 10 MG TAB PO SCH (09:01)
[2021-10-07] MEDS: TAMSULOSIN HCL 0.4 MG CAP PO SCH (09:01)
[2021-10-07] MEDS: UMECLIDINIUM BROMIDE 62.5MCG/BLISTER 7 PUFFS/INHALER INH SCH (09:04)
[2021-10-07] MEDS: INSULIN ASPART PER UNIT SC SCH ×2 (09:07→12:26)
[2021-10-07] MEDS ORDERED: VANCOMYCIN HCL 1,250 MG in SODIUM CHLORIDE 0.9% 250 ML IV SCH (12:00)
[2021-10-07] MEDS: traMADol HCL 50 MG TABLET PO PRN (13:58)
[2021-10-07] MEDS ORDERED: LIDOCAINE 2% 2 ML VIAL/AMP(20MG/ML) INFIL ONE (14:05)
--- NOTE | 2021-10-07 14:33 | Hospitalist Progress Note ---
Date of Service October 07, 2021 Assessment & Plan (1) Lung abscess: (2) Multifocal pneumonia: Plan: Patient is a 61 yr male presents with ongoing cough for the last 2 months and found to have left lower lung empyema versus abscess. Pneumonia with pulmonary abscess COPD --CT Chest:No significant change compared to the prior study. Large complex thick-walled fluid and gas containing collection within the left lower hemithorax which measures 15 x 7 cm. An empyema is favored. A pulmonary abscess is within the differential although considered less likely. Adjacent subpleural left lower lobe and lingular airspace opacity with volume loss. An underlying neoplastic process is considered much less likely however a follow-up chest CT in 3-6 months to ensure resolution is recommended. --Continue empiric antibiotic Sputum culture pending Covid screen negative MRSA screen negative Appreciate pulmonology input If patient's transfer gets delayed, pulmonology plans to place pigtail catheter Saturating low 90s on room air Nebs PRN Continue vancomycin, Zosyn for now Plan for transfer to [facility] for CT surgery evaluation today Hypomagnesemia Replace electrolytes as needed DM II HbA1C: 6.8 Hold Metformin Continue insulin therapy while hospitalized Monitor BGs Hyperlipidemia: Continue statin. BPH Continue Flomax. Hypertension: Continue lisinopril/hydrochlorothiazide. DVT Px SCDs for now Code Status Full Code Disposition Transfer to [facility] for CT surgery eval Admission and Anticipated Discharge Date Admission Date: October 05, 2021 Subjective Patient is seen and examined at bedside Doing better today Cough with yellowish expectoration is about same as yesterday No new complaints Denies any chest pain, dyspnea, dizziness, nausea, abdominal pain Plan to be discharged to [facility] today Review of Systems Review of Systems: All systems reviewed & are unremarkable except as noted in Subjective Physical Exam Physical Exam: Physical Exam: Vitals signs as noted above General Appearance:Obese, no apparent distress Head: normocephalic, Atraumatic Eyes: normal inspection, EOMI Neck: supple, Trachea midline Respiratory/Chest: Decreased breath sounds, Left basal crackles, No accessory muscle use Cardiovascular: S1, S2, No murmur Abdomen/GI:Soft, Non tender, Bowel sounds present Extremities/Musculoskeletal:normal inspection, Trace pedal edema Neurologic/Psych:AAOX3, grossly no focal neurological deficits Skin: normal color, warm Results & Data Results & Data ([facility]) Vital Signs (Past 12 Hours) Vital Signs Temp Pulse Pulse Resp BP Pulse Ox 10/07/21 11:01 36.4 C L 92 H 20 159/74 H 91 10/07/21 07:14 77 10/07/21 07:00 36.5 C 71 20 125/78 93 10/07/21 03:35 37.0 C 81 20 126/77 92 Laboratory Results Short CBC 10/07/21 Range/Units 03:20 WBC 10.22 (4.8-10.8) K/uL Hgb 9.1 L (14.0-18.0) g/dL Hct 29.1 L (42-52) % Plt Count 626 H (130-400) K/uL BMP 10/07/21 03:20 Sodium 136 Potassium 4.4 Chloride 99 Carbon Dioxide 30 BUN 9 Creatinine 0.64 Glucose 114 H Calcium 9.0
--- NOTE | 2021-10-07 14:41 | Discharge Summary ---
Date of Service October 07, 2021 Admission HPI Per Admitting Provider CHIEF COMPLAINT: Lung abscess versus empyema. HISTORY OF PRESENT ILLNESS: A 61-year-old male with past medical history significant for hypertension, BPH, hyperlipidemia, prediabetes, presents with cough going on for 2 months. The patient was in the ER on 10/02 with a similar complaint. At that time, imaging studies showed possible lung abscess versus empyema and advised for IV antibiotics and staying in the hospital for possible drainage, but the patient adamantly refused and signed out AMA and was given oral antibiotics, Augmentin and Bactrim, but the patient says today, he felt almost passed out, so he came back and again the CT chest showing large complex thick walled fluid and gas containing collection in the left lower hemithorax, which measures 15 x 7 cm, empyema is favored, pulmonary abscess in the differential. ER physician talked to pulmonary and he was given vancomycin and Zosyn and getting transferred to [facility]. Hospitalist, Dr. Bailon, accepted the patient but we are awaiting for a bed, so we were called for admission until a bed is available. The patient is currently resting comfortably, hemodynamically stable. Says his shortness of breath is okay now, saturating fine on room air, ambulation makes him short of breath. Denies any headache, no dizziness, no blurred visions, no earache, no runny nose, no sore throat, no nausea, no vomiting. Appetite is good. No difficulty swallowing. No chest pain, no nausea, no abdominal pain. Normal bowel and bladder movements. He has some slight edema in the legs, some difficulty with urination because of enlarged prostate and takes medication for it. Lives with his family. Admission Exam Per Admitting Provider PHYSICAL EXAMINATION: GENERAL: The patient is obese, not in acute distress. VITAL SIGNS: Temperature 36.6, pulse 71, respirations 17, blood pressure 118/67, oxygen 96% on room air. HEENT: Pupils equal, round and reactive to light. Oral mucosa moist. NECK: No JVD. No neck masses. CARDIOVASCULAR: S1 and S2 heard. Regular rate and rhythm. No murmur, no gallop. RESPIRATORY SYSTEM: Normal AP diameter. No accessory muscle use. No wheezing, no crackles. ABDOMEN: Soft, bowel sounds present, nontender, no distention. CENTRAL NERVOUS SYSTEM: Cranial nerves II through XII are grossly intact, nonfocal. EXTREMITIES: Mild pedal edema, no erythema seen. Principal Diagnosis Pneumonia with possible pulmonary abscess Discharge Data Allergies Allergy/AdvReac Type Severity Reaction Status Date / Time No Known Allergies Allergy Verified 10/05/21 17:55 Consultations 10/05/21 20:07 ED Decision to Admit Stat 10/06/21 09:00 Consult Pulmonology Routine Ordered Studies 10/05/21 16:18 CT chest diagnostic w con Stat 10/07/21 08:10 US point of care ultrasound Urgent Hospital Course (1) Lung abscess: (2) Multifocal pneumonia: Patient is a 61 yr male presents with ongoing cough for the last 2 months and found to have left lower lung empyema versus abscess. Pneumonia with pulmonary abscess COPD --CT Chest:No significant change compared to the prior study. Large complex thick-walled fluid and gas containing collection within the left lower hemithorax which measures 15 x 7 cm. An empyema is favored. A pulmonary abscess is within the differential although considered less likely. Adjacent subpleural left lower lobe and lingular airspace opacity with volume loss. An underlying neoplastic process is considered much less likely however a follow-up chest CT in 3-6 months to ensure resolution is recommended. --Continue empiric antibiotic Sputum culture pending Covid screen negative MRSA screen negative Appreciate pulmonology input If patient's transfer gets delayed, pulmonology plans to place pigtail catheter Saturating low 90s on room air Nebs PRN Continue vancomycin, Zosyn for now Plan for transfer to [facility] for CT surgery evaluation today Hypomagnesemia Replace electrolytes as needed DM II HbA1C: 6.8 Hold Metformin Continue insulin therapy while hospitalized Monitor BGs Hyperlipidemia: Continue statin. BPH Continue Flomax. Hypertension: Continue lisinopril/hydrochlorothiazide. DVT Px SCDs for now Code Status Full Code Disposition Transfer to [facility] for CT surgery eval Total Time Total Time Spent Total Time Spent (In Minutes): 44 minutes Discharge Plan Discharge Items Patient Disposition: Transfer Acute Care Hospital Reason For Visit: EMPYEMA Discharge Diagnosis: Pneumonia with possible pulmonary abscess Activity: Per Instructions section Exercise/Sports: Wait until after follow-up appointment Non-emergency contact: Primary Care Provider Call non-emergency contact if: you have any medication questions, your symptoms worsen, your pain is concerning for you and you have a fever Follow-up/Referrals: Leigh Moser PA-C [Primary Care Provider] - Diet: Carb Consistent or DM2 and Heart Healthy Addtl Attending Provider Instructions: Follow up with your Physician at [facility] for further Care Date of Service: October 07, 2021 Current Inpatient Medications Acetaminophen (Acetaminophen 325 Mg Tab) 650 mg PO Q4H PRN PRN Reason: Pain or Fever Stop: 11/04/21 23:41 Last Admin: 10/07/21 04:23 Dose: 650 mg Documented by: Dextrose (Dextrose 50% 50 Ml Syringe) 25 - 50 ml IV UD PRN; Protocol PRN Reason: Hypoglycemia Protocol Stop: 11/05/21 11:48 Gabapentin (Gabapentin 100 Mg Cap) 200 mg PO TID SANDY Stop: 11/05/21 13:59 Last Admin: 10/07/21 13:44 Dose: 200 mg Documented by: Glucagon (Glucagon For Inj 1 Mg Vial) 1 mg SQ UD PRN; Protocol PRN Reason: Hypoglycemia Protocol Stop: 11/05/21 11:48 Glucose (Glucose 10 Tabs/Tube) 4 - 8 tabs PO UD PRN; Protocol PRN Reason: Hypoglycemia Protocol Stop: 11/05/21 11:48 Glucose (Glucose 40% Gel 15 Gm Tube) 15 - 30 gm PO UD PRN; Protocol PRN Reason: Hypoglycemia Protocol Stop: 11/05/21 11:48 Lisinopril/HCTZ (Lisinopril/Hctz 10/12.5mg Tab) 1 tab PO QAM SANDY Stop: 11/05/21 08:59 Last Admin: 10/07/21 09:01 Dose: 1 tab Documented by: Piperacillin Sod/Tazobactam (Sod 4.5 gm/ Dextrose) 120 mls @ 30 mls/hr IV Q8H SANDY; Protocol Stop: 10/13/21 05:59 Last Admin: 10/07/21 13:44 Dose: 30 mls/hr Documented by: Vancomycin HCl 1,250 mg/ (Sodium Chloride) 275 mls @ 200 mls/hr IV Q8H SANDY Stop: 10/14/21 11:59 Last Infusion: 10/07/21 13:49 Dose: Infused Documented by: Insulin Aspart (Insulin Aspart Per Unit) 0 units SC ACHS SANDY Stop: 11/05/21 16:29 Last Admin: 10/07/21 12:26 Dose: 2 units Documented by: Levalbuterol HCl (Levalbuterol Hcl 1.25 Mg/3 Ml Neb) 1.25 mg NEB Q4H PRN; Protocol PRN Reason: Shortness Of Breath Or Wheezing Stop: 11/04/21 23:41 Loratadine (Loratadine 10 Mg Tab) 10 mg PO QAM [facility] Stop: 11/05/21 08:59 Last Admin: 10/07/21 09:01 Dose: 10 mg Documented by: Methocarbamol (Methocarbamol 750 Mg Tablet) 750 mg PO QID PRN PRN Reason: Pain Stop: 11/04/21 23:41 Last Admin: 10/06/21 18:20 Dose: 750 mg Documented by: Miscellaneous (Carbohydrates For Hypoglycemia ) 15 - 30 gm PO UD PRN PRN Reason: Hypoglycemia Protocol Stop: 11/05/21 11:48 Miscellaneous Information (Vancomycin Consult Active) 1 ea N/A UD PRN PRN Reason: Consult Stop: 11/04/21 23:41 Miscellaneous Information (Piperacill/Tazobac Consult Active) 1 ea N/A UD PRN PRN Reason: Consult Stop: 11/04/21 23:41 Multivitamins (Multivitamin Tab) 1 tab PO [facility] Stop: 11/05/21 08:59 Last Admin: 10/07/21 09:01 Dose: 1 tab Documented by: Nitroglycerin (Nitroglycerin Sl 0.4 Mg/Tab Tab) 0.4 mg SL Q5M PRN PRN Reason: Chest Pain Stop: 11/04/21 23:41 Polyethylene Glycol (Polyethylene (Miralax) 17 Gm Pack) 17 gm PO DAILY PRN PRN Reason: Constipation Stop: 11/04/21 23:41 Pravastatin Sodium (Pravastatin Sod 40 Mg Tab) 40 mg PO HS [facility] Stop: 11/05/21 20:59 Last Admin: 10/06/21 22:06 Dose: 40 mg Documented by: Tamsulosin HCl (Tamsulosin Hcl 0.4 Mg Cap) 0.4 mg PO QAM [facility] Stop: 11/05/21 08:59 Last Admin: 10/07/21 09:01 Dose: 0.4 mg Documented by: Tramadol HCl (Tramadol Hcl 50 Mg Tablet) 100 mg PO Q8 PRN PRN Reason: Pain Last Admin: 10/07/21 13:58 Dose: 100 mg Documented by: Umeclidinium [place] (Umeclidinium [place] 62.5mcg/Blister 7 Puffs/Inhaler) 1 puffs INH DAILY SANDY Stop: 11/05/21 11:29 Last Admin: 10/07/21 09:04 Dose: 1 puffs Documented by: Pending Studies at Discharge: Yes Studies:: Sputum Culture Stand-Alone Forms: [facility] Skilled Items Patient informed of condition?: Yes DNR: No Discharge Level of Care: Other Communicable Disease: No Discharge Prognosis: Stable Lines: Peripheral IV Urinary Catheter: No Medications and DC Order Prescriptions: Continued pravastatin 40 mg Tablet 40 mg PO HS Qty: 0 RF: 0 lisinopril-hydrochlorothiazide 10-12.5 mg Tablet 1 tab PO QAM Qty: 0 RF: 0 etodolac 500 mg Tablet 500 mg PO BID Qty: 0 RF: 0 loratadine 10 mg Capsule 10 mg PO QAM Qty: 0 RF: 0 tamsulosin 0.4 mg Capsule 0.4 mg PO QAM Qty: 0 RF: 0 ranitidine HCl 150 mg Tablet 150 mg PO DIRECTED Qty: 0 RF: 0 tramadol 100 mg Tablet 100 mg PO Q8 PRN (Reason: Pain) Qty: 0 RF: 0 multivitamin Tablet 1 tab PO QAM Qty: 0 RF: 0 methocarbamol 750 mg Tablet 750 mg PO QID PRN (Reason: Pain) Qty: 0 RF: 0 gabapentin 100 mg Tablet 200 mg PO TID RF: 0 metformin 1,000 mg Tablet 1,000 mg PO DAILY RF: 0 omega [id number]-fish oil [Fish Oil] 1,200 (144-216) mg Capsule 1 cap PO QAM RF: 0 sulfamethoxazole-trimethoprim [Bactrim DS] 800-160 mg tablet 1 tab PO BID 14 Days Qty: 28 RF: 0 amoxicillin-pot clavulanate 875-125 mg tablet 1 tab PO BID 14 Days Qty: 28 RF: 0 Discharge Orders: Discharge Order (Routine); Ordered 10/07/21 Ordered By: Armen Guerrero/Other Patient Handouts: 5 Steps for Eating Healthier, Exercise: Why Fitness Matters, Type 2 Diabetes Admission Data Admit Date/Time: 10/05/21 21:30 Attending Provider: Armen Santizo Admit Provider: Humberto Avendano Primary Care Provider: Leigh Moser Other Providers: Humberto Avendano ; Nirmala Berkowitz ; [facility]
--- NOTE | 2021-10-07 15:08 | Pulmonology Progress Note ---
Date of Service October 07, 2021 Assessment & Plan (1) Abnormal chest CT: (2) Multifocal pneumonia: (3) Lung abscess: (4) Empyema lung: Plan: CT chest 03/07/2022 personally reviewed: Centrilobular emphysema appreciated bilaterally Left lower lobe multiloculated, thick-walled lesion 15 x 7.3 cm appreciated with air pockets within No significant mediastinal lymphadenopathy --Pneumonia with possible pulmonary abscess Patient does not have any pleuritic chest pain Symptoms have been going on for months Has not been adequately treated with antibiotic as an outpatient To me the possibility of it being pulmonary abscess is a bit on the higher side especially given the patient does not have any pleuritic chest pain which is pathopneumonic for empyema VATS should be considered in patient's case. COVID-19 PCR negative Nasal MRSA negative --COPD Not on any new meds at home We will start the patient on Incruse to be used on a daily basis Plan: Patient has been in for a bed for more than 24 hours. Given the patient has empyema I would not like to wait longer and I will try to put a pigtail catheter in He can still be transferred to [place] once the bed is available and he can continue with mist protocol versus surgery Risk and benefit of the procedure explained to the patient in depth He agrees to go ahead with the procedure Consent signed, witnessed and put in the chart Case discussed with RN and Dr. Santizo Please note the above document was generated using voice recognition software. It may contain grammatical, syntax or spelling errors.Any formal questions or concerns about the content, text or information contained within the body of this dictation should be directly addressed to the provider for clarification. Admission and Anticipated Discharge Date Admission Date: October 05, 2021 Subjective Patient seen and examined at bedside. No acute distress, no adverse events overnight. Denies any nausea or vomiting No significant shortness of breath Does complain of runny nose. Good appetite. No fever or chills. Review of Systems Review of Systems: All systems reviewed & are unremarkable except as noted in Subjective Physical Exam Physical Exam: Constitutional: No acute distress HEENT: EOMI, PERRLA Respiratory system: Decreased air entry bilaterally, no wheeze, no rhonchi, positive crackles appreciated bilaterally more on the left lower side CVS: S1-S2 positive, no murmurs or gallops Abdomen: Soft, nontender, nondistended, positive bowel sounds x4, obese Extremities: +2 pulses bilaterally radialis/ dorsalis pedis, no cyanosis, +1 edema bilateral lower extremity Neuro: Awake alert oriented x3 Psych: Normal mood and affect G/U: No Frasuto Skin: no rashes, warm and dry Lymphatic: no cervical or axillary lymphadenopathy Results & Data Results & Data ([facility]) Vital Signs (Past 12 Hours) Vital Signs Temp Pulse Pulse Resp BP Pulse Ox 10/07/21 11:01 36.4 C L 92 H 20 159/74 H 91 10/07/21 07:14 77 10/07/21 07:00 36.5 C 71 20 125/78 93 10/07/21 03:35 37.0 C 81 20 126/77 92 Laboratory Results 10/07/21 03:20 10/07/21 03:20 PG Care Time/CCT Total # of Minutes Spent Total Time Spent with Patient: Total time spent is greater than 50% in coordination of care (as documented) at patient's floor/unit and/or counseling patient: Coding Level of Care Code 84131 Subseq Hosp Care Lvl [address] R93.89 Multifocal pneumonia J18.9 Lung abscess J85.2 Empyema lung J86.9
--- NOTE | 2021-10-07 15:10 | Procedure Note ---
Procedure Note Date of Service October 07, 2021 Note Procedure: Pigtail chest tube insertion C Wpf Developer: Dr. Nirmlaa Berkowitz Indication: Left-sided loculated pleural effusion Consent: Signed by patient and verified with timeout prior to procedure Anesthesia: 1% lidocaine without epinephrine local Procedure: Consent was verified and timeout performed. Appropriate imaging studies were reviewed prior to the procedure. Patient was placed in a seated position. Appropriate site above the diaphragm on the left mid scapular line fourth intercostal space for chest tube insertion was selected. The skin was prepped and draped in normal sterile fashion. Lidocaine was used for local analgesia. Fluid was aspirated via the finder needle. A small skin renu was made with the scalpel and the catheter over the needle apparatus was advanced over the rib into the pleural space. With the help of guidewire and Seldinger technique, 14 [place] pigtail catheter was inserted and connected to Pleur-evac. Very thick green-colored pus was aspirated No air leak appreciated after that. Chest x-ray to follow Fluid was sent for labs, culture and cytology. The patient tolerated the procedure without obvious complication Complications: None Blood loss: Less than 2 cc. Coding CPT Codes Pulmonary/Thoracic - Pulmonary and Thoracic: 97816 Tube thoracostomy ([id number]) Pulmonary/Thoracic - Pulmonary and Thoracic: 85460 Pleural drainage w/o imaging ([id number]) Pulmonary/Thoracic - Pulmonary and Thoracic: 26843 US, Chest, real time with imaging documentation ([id number]) [facility] Procedure Codes (Charges) Pulmonary/Thoracic Procedure 1: Pulmonary and Thoracic: 10295 Tube thoracostomy Procedure 2: Pulmonary and Thoracic: 75028 Pleural drainage w/o imaging Procedure 3: Pulmonary and Thoracic: 96977 US, Chest, real time with imaging documentation
--- NOTE | 2021-10-07 15:35 | XRay Report ---
XR chest 1V portable CLINICAL HISTORY: chest tube TECHNIQUE: Single frontal radiograph of the chest was obtained. Comparison: Comparison is made to chest 2 views 10/05/2021 FINDINGS: Interval placement of left chest tube. The cardiomediastinal silhouette is normal. Airspace opacity i n the left lower lung is again seen. There is a moderate left pleural effusion. No pneumothorax is se en. IMPRESSION: Interval placement of left chest tube without evidence of pneumothorax. Left effusion and underlying airspace opacity likely representing atelectasis is unchanged. ACT 112: Negative or not required by law. Electronically signed by: Clifton Lopez M.D. 10/07/2021 3:33 PM
[2021-10-07 16:13] LABS: Albumin Level 3.2 gm/dl (3.4-5.0); Bilirubin,Total 0.4 mg/dl (0.2-1.0); Total Protein 7.6 gm/dl (6.0-8.3)
[2021-10-07 20:42] LABS: Appearance Pleural Fluid TURBID; Basophils, Fluid 0 %; Color Pleural Fluid STRAW; Eosinophils, Fluid 0 %; Lymphocytes, Fluid 7 %; Mono,Macrophage,Mesothelial 0 %; Neutrophils, Fluid 93 %; RBC Pleural Fluid (A) < 3000 /uL; Source Pleural Fluid LEFT LUNG; WBC Pleural Fluid (A) 303 /uL
[2021-10-08] MEDS ORDERED: VANCOMYCIN TROUGH ONE (03:30)
== END 2021-10-07 16:06 | disposition short-term general hospital (02) | DRG 178 ==
LOC: ED 13:47 → EDINP 21:30 → 2N 10-06 19:28